=== PATIENT | male | born 1960 | race Caucasian/White ===

== ENCOUNTER 2018-01-28 14:55 | Emergency (ER) | payer SELFPAY ==
[~2018-01-28] VITALS: Ht 188 cm; Wt 104.3 kg
[2018-01-28 15:14] VITALS: BP 173/90
--- NOTE | 2018-01-28 15:21 | Emergency Room Report ---
History of Present Illness General Chief Complaint: Chest Pain Source: Patient Present Illness HPI 57-year-old male presents with 3 days of "not feeling well" including right greater than left leg swelling, chest pain and shortness of breath, associated with intermittent short lived dizziness. Patient stated symptoms started before a recent [address] drive. He stopped bye in [place] at a clinic for evaluation however left because "they were incompetent". He denies history of smoking, self or family history of DVT or PE. He denies history of ACS or stroke in himself or family members. He does not have any known medical problems. He does not take any medications. Allergies: Coded Allergies: No Known Allergies (Unverified , 01/28/18) Patient History Past Medical History: none Past Surgical History: none Pertinent Family History: none Social History: Denies: smoking, alcohol use, drug use Immunizations: UTD Reviewed Nursing Documentation: PMH: Agreed; PSxH: Agreed Nursing Documentation-PMH Past Medical History: No Stated History Review of Systems All Other Systems: negative except mentioned in HPI Physical Exam Vital Signs Date Time Temp Pulse Resp B/P (MAP) Pulse Ox O2 Delivery O2 Flow Rate FiO2 01/28/18 14:57 98.1 115 20 173/90 91 Room Air 98.1 Sp02 EP Interpretation: reviewed, normal General Appearance: normal inspection, well appearing, alert, GCS 15, non-toxic , mild distress Head: normocephalic, atraumatic Eyes: bilateral eye PERRL, bilateral eye EOMI ENT: normal ENT inspection, hearing grossly normal, normal pharynx, no angioedema, normal voice, TMs + canals normal, uvula midline, moist mucus membranes Neck: normal inspection, full range of motion, supple, thyroid normal, no meningismus, no bony tend Respiratory: normal inspection, lungs clear, normal breath sounds, no rhonchi, no respiratory distress, no retraction, no accessory muscle use, no wheezing, speaking full sentences Cardiovascular #1: regular rate, rhythm, no edema, no JVD, normal capillary refill Gastrointestinal: normal inspection, normal bowel sounds, non tender, soft, no mass, no peritonitis, non-distended, no guarding, no hernia, no pulsatile mass Genitourinary: no CVA tenderness Musculoskeletal: normal inspection, back normal, normal range of motion, no calf tenderness, pelvis stable, Karsten's Sign negative, other - R>L mild non- pitting edema. Neurologic: normal inspection, alert, oriented x3, responsive, investment specialist III-XII nml as tested, motor strength/tone normal, cerebellar normal, normal gait, speech normal Psychiatric: normal inspection, judgement/insight normal, mood/affect normal, no suicidal/homicidal ideation, no delusions Skin: normal inspection, normal color, no rash Lymphatic: normal inspection, no adenopathy Medical Decision Making Diagnostic Impression: Primary Impression: Chest pain Qualified Codes: R07.9 - Chest pain, unspecified Additional Impressions: SOB (shortness of breath) Leg swelling ER Course VSS, afebrile Not septic appearing BNP WNL - unlikely acute CHF as cause of leg swelling/SOB ECG is non-ischemic, trop is WNL - unlikely ACS as cause of symptoms D-dimer negative - however given frequent long distance travel he is high risk for PE so CTA was done 553pm - CTA negative for PE however Dr Shin said sub-optimal scan for smaller peripheral PE to be ruled out - However d-dimer negative so low suspicion for clinically significant PE - Patient feels much better after pain control and hydration DC with PMD followup EKG Diagnostic Results Rate: normal Rhythm: NSR ST Segments: other - LAFB ASA given to the pt in ED: No Rhythm Strip Diag. Results EP Interpretation: yes Rate: 94 Rhythm: NSR, no PVC's, no ectopy Last Vital Signs Date Time Temp Pulse Resp B/P (MAP) Pulse Ox O2 Delivery O2 Flow Rate FiO2 01/28/18 15:14 115 20 Room Air 01/28/18 15:14 98.1 173/90 91 98.1 Status: improved Disposition: HOME, SELF-CARE ADRIAN BENSON M.D. Jan 28, 2018 15:21
[2018-01-28] MEDS ORDERED: Isovue-370 150ml vial INJ PRN (15:30)
[2018-01-28 15:50] LABS: BASOPHILS % (AUTO) 1.7 % (0.0-2.0); EOSINOPHILS % (AUTO) 5.8 % (0.0-3.0); HEMATOCRIT 43.1 % (42.0-52.0); HEMOGLOBIN 14.3 G/DL (14.2-18.0); LYMPHOCYTES % (AUTO) 26.7 % (20.0-45.0); MEAN CORPUSCULAR VOLUME 99 FL (80-99); MONOCYTES % (AUTO) 9.7 % (1.0-10.0); NEUTROPHILS % (AUTO) 56.1 % (45.0-75.0); PLATELET COUNT 351 K/UL (150-450); RED BLOOD COUNT 4.35 M/UL (4.70-6.10); RED CELL DISTRIBUTION WIDTH 14.4 % (11.6-14.8); WHITE BLOOD COUNT 4.8 K/UL (4.8-10.8)
[2018-01-28] MEDS ORDERED: Morphine Sulfate 2mg/ml Inj IVP ONE (16:00)
[2018-01-28 16:08] LABS: ANION GAP 13 mmol/L (5-15); BLOOD UREA NITROGEN 9 mg/dL (7-18); CALCIUM 8.3 MG/DL (8.5-10.1); CARBON DIOXIDE 22 MMOL/L (21-32); CHLORIDE 103 MMOL/L (98-107); CREATININE 0.8 MG/DL (0.55-1.30); POTASSIUM 3.6 MMOL/L (3.5-5.1); SODIUM 138 MMOL/L (136-145)
[2018-01-28 16:20] LABS: ALANINE AMINOTRANSFERASE 29 U/L (12-78); ALBUMIN 3.4 G/DL (3.4-5.0); ALBUMIN/GLOBULIN RATIO 0.9 (1.0-2.7); ALKALINE PHOSPHATASE 106 U/L (46-116); ASPARTATE AMINO TRANSFERASE 28 U/L (15-37); CKMB 1.4 NG/ML (0.0-3.6); CREATINE KINASE 128 U/L (26-308)
--- NOTE | 2018-01-28 17:27 | Diagnostic Imaging Report ---
ndication: Chest pain, shortness of breath, bilateral leg swelling Technique: IV administration nonionic contrast. Spiral acquisitions obtained from the lung bases to the lung apices. Multiplanar and 3-D reconstructions were generated. Total dose length product 1040.48 mGycm. CTDIvol(s) 28.38 mGy. Dose reduction achieved using automated exposure control Comparison: none Findings: Pulmonary arterial contrast opacification is suboptimal, and small peripheral emboli cannot be excluded with any confidence. No large vessel central pulmonary emboli demonstrated, however. No pulmonary arterial dilatation or right ventricular dilatation demonstrated. No evidence of thoracic aortic aneurysm or dissection. The lungs demonstrate posterior dependent atelectatic changes. The lungs and pleural spaces are otherwise clear. Normal heart size. No evidence of pericardial effusion. There is a small sliding-type hiatal hernia. No mediastinal or hilar mass or adenopathy. The included portions of the thyroid are unremarkable. There is mild bilateral gynecomastia, asymmetric right greater than left. The bones demonstrate old healed fracture deformities of the right third and fourth ribs and of the left third and fourth ribs. The included upper abdominal anatomy demonstrates colonic diverticulosis. A calcification is seen in the right hepatic lobe. Impression: Suboptimal pulmonary arterial opacification precludes confident exclusion of peripheral pulmonary emboli. No gross large vessel central pulmonary embolus demonstrated Posterior dependent atelectatic changes. Lungs and pleural spaces are otherwise clear. Other findings as noted, including small sliding-type hiatal hernia, right greater than left bilateral gynecomastia, old healed rib fracture deformities as described, colonic diverticulosis, probable dystrophic right hepatic lobe calcification The CT scanner at [facility] is accredited by the [employer] and the scans are performed using protocols designed to limit radiation exposure to as low as reasonably achievable to attain images of sufficient resolution adequate for diagnostic evaluation.
[2018-01-28] MEDS ORDERED: Ketorolac 30mg Inj IV ONE (17:30)
[2018-01-28] MEDS ORDERED: LR 1000ml 1,000 ML IV SCH (18:00)
[2018-01-28 18:16] VITALS: BP 173/90
--- NOTE | 2018-01-29 16:41 | Cardiology Report ---
APPROVED REPORT EKG Measurement Heart [id number] HI [id number] [id number] Normal sinus rhythm Left anterior fascicular block Possible Lateral infarct, age undetermined Abnormal ECG
== END 2018-01-28 18:16 | disposition home or self-care (01) ==
LOC: EMR 15:30
DX: R07.9 Chest pain, unspecified (principal); R06.02 Shortness of breath; R60.0 Localized edema
CPT/HCPCS: 36415; 71275; 80053; 82550; 82553; 83880; 84484; 85025; 85379; 93005; 96361; 96374; 96375; 99283; J1885; J2270; J2405; Q9967